=== PATIENT | male | born 1950 | race Caucasian/White ===

== ENCOUNTER 2021-06-27 21:43 | Inpatient (IN) | payer MEDICARE, MEDICAID ==
[~2021-06-27] VITALS: Ht 177.8 cm; Wt 71.7 kg
[2021-06-27 22:49] LABS: HEMOGLOBIN 13.9 gm/dl (14.0-17.5); RED BLOOD COUNT 4.29 M/UL (4.20-5.50); WHITE BLOOD COUNT 10.2 K/UL (4.5-11.0)
[2021-06-27 23:18] LABS: BUN/CREATININE RATIO 21 (0-10)
[2021-06-28] MEDS ORDERED: ASPIRIN EC81 MG PO (13:06)
[2021-06-29 00:34] LABS: HEMOGLOBIN 14.2 gm/dl (14.0-17.5); RED BLOOD COUNT 4.38 M/UL (4.20-5.50); WHITE BLOOD COUNT 11.4 K/UL (4.5-11.0)
[2021-06-29 01:10] LABS: BUN/CREATININE RATIO 18 (0-10)
[2021-06-29] MEDS ORDERED: CARBIDOPA-LEVO1 EA14 PO (09:16)
[2021-06-29] MEDS ORDERED: ELIQUIS 5 MG TAB5 MG PO ×2 (09:16→09:47)
[2021-06-29] MEDS ORDERED: ELIQUIS5 MG PO (09:47)
--- NOTE | 2021-06-29 11:42 | NUR ---
RN CALLED DR. BLAKELY TO ADDRESS CONCERNS ABOUT PATIENT'S PAIN CONTROL AT HOME ONCE DISCHARGED. MD STATED HE COULDN'T PRESCRIBE PAIN NARCOTICS R/T [facility].
== END 2021-06-29 12:52 | disposition home health service (06) | DRG 175 ==
LOC: ER1 21:43 → CDU 06-28 02:40 → 3 EAST 06-28 13:47 → MED SURG 4 06-28 20:36
PROVIDERS: Physician Assistant; ADMIT Internal Medicine
PROC: B24BZZZ Ultrasonography of Heart with Aorta (ICD-10-PCS; principal; 2021-06-28)
DX: I26.99 Other pulmonary embolism without acute cor pulmonale (principal); J96.01 Acute respiratory failure with hypoxia; G20 Parkinson's disease; E11.9 Type 2 diabetes mellitus without complications; Z20.822 Contact with and (suspected) exposure to COVID-19; I51.9 Heart disease, unspecified; M19.90 Unspecified osteoarthritis, unspecified site; Z86.718 Personal history of other venous thrombosis and embolism; Z79.899 Other long term (current) drug therapy; Z79.01 Long term (current) use of anticoagulants; Z87.891 Personal history of nicotine dependence; Z79.82 Long term (current) use of aspirin
CPT/HCPCS: ECHO; 36415; 71045; 80048; 80053; 81001; 82550; 82553; 83036; 83735; 83874; 83880; 84484; 85025; 85027; 85379; 85610; 85730; 93005; 93306; 99284; J1644; J2270; Q9967; U0002

== ENCOUNTER 2021-07-31 20:40 | Emergency (ER) | payer MEDICARE ==
[~2021-07-31 20:40] MED LIST: ASPIRIN EC81 MG PO; CARBIDOPA-LEVO1 EA14 PO; ELIQUIS 5 MG TAB5 MG PO; ELIQUIS5 MG PO
[2021-07-31 23:11] LABS: HEMOGLOBIN 13.8 gm/dl (14.0-17.5); RED BLOOD COUNT 4.42 M/UL (4.20-5.50); WHITE BLOOD COUNT 3.9 K/UL (4.5-11.0)
[2021-07-31 23:44] LABS: BUN/CREATININE RATIO 16 (0-10)
[2021-08-01] MEDS ORDERED: DECADRON4 MG PO (02:14)
== END 2021-08-01 02:20 | disposition home or self-care (01) ==
LOC: ER1 20:40
PROVIDERS: Physician Assistant
DX: U07.1 COVID-19 (principal); Z86.711 Personal history of pulmonary embolism; Z79.01 Long term (current) use of anticoagulants
CPT/HCPCS: 71045; 80053; 82550; 82553; 83874; 84484; 85025; 93005; 99285; U0002

== ENCOUNTER → 2021-08-02 | Outpatient (CLI) | payer MEDICARE ==
[~2021-08-02] VITALS: Ht 170.2 cm; Wt 71.7 kg
[~2021-08-02] MED LIST changes: +DECADRON4 MG PO
== END ==
LOC: EROP 11:06
DX: U07.1 COVID-19 (principal); Z23 Encounter for immunization; I26.99 Other pulmonary embolism without acute cor pulmonale; Z79.01 Long term (current) use of anticoagulants
CPT/HCPCS: M0247; Q0247